=== PATIENT | female | born 1980 | race Caucasian/White ===

== ENCOUNTER 2020-02-06 07:53 | Day surgery (SDC) | payer OTHER ==
[~2020-02-06] VITALS: Ht 153.7 cm; Wt 81.3 kg
[2020-02-06 08:37] VITALS: BP 139/84
[2020-02-06] MEDS ORDERED: NORE-93 PO (08:37)
[2020-02-06] MEDS ORDERED: LACTATED RINGERS 1,000 ML IV STA (08:42)
[2020-02-06] MEDS ORDERED: CHLORHEXIDINE 15 ML UDC MM STA (08:42)
[2020-02-06] MEDS ORDERED: KETOROLAC 30 MG/1 ML ONE (08:50)
[2020-02-06] MEDS ORDERED: MIDAZOLAM 1 MG/ML, 2ML ONE (08:50)
[2020-02-06] MEDS ORDERED: FENTANYL PF 250 MCG/5ML ONE ×2 (08:50→11:04)
[2020-02-06] MEDS ORDERED: NEOSTIGMINE 1 MG/ML, 10ML ONE (08:51)
[2020-02-06] MEDS ORDERED: ROCURONIUM 10MG/ML,5ML ONE (08:51)
[2020-02-06] MEDS ORDERED: DEXAMETHASONE 4 MG/ML, 1ML ONE (08:51)
[2020-02-06] MEDS ORDERED: GLYCOPYRROLATE 0.2MG/1ML, 5ML ONE (08:51)
[2020-02-06] MEDS ORDERED: PROPOFOL 10 MG/ML, 20ML ONE (08:51)
[2020-02-06] MEDS ORDERED: ONDANSETRON 2MG/ML, 2ML ONE (08:51)
[2020-02-06] MEDS ORDERED: CHLORHEXIDINE 15 ML UDC ONE (08:52)
[2020-02-06 09:01] LABS: HCG UR SG 1.021 (1.003-1.030)
[2020-02-06] MEDS ORDERED: LACTATED RINGERS 1,000 ML IV ONE (09:30)
[2020-02-06] MEDS ORDERED: CEFOTETAN 2 GM ONE (09:56)
[2020-02-06] MEDS ORDERED: HALOPERIDOL 5 MG/ML IV PRN (10:00)
[2020-02-06] MEDS ORDERED: MEPERIDINE/PF 25MG/0.5ML IVPush PRN (10:00)
[2020-02-06] MEDS ORDERED: morphine SULFATE 10 MG/ML, 1ML IVPush PRN (10:00)
[2020-02-06] MEDS ORDERED: LABETALOL 5MG/ML, 20ML IV PRN (10:00)
[2020-02-06] MEDS ORDERED: ACETAMINOPHEN 325 MG TABLET PO PRN (10:00)
[2020-02-06] MEDS ORDERED: PROMETHAZINE 25 MG/ML, 1ML IVPush PRN (10:00)
[2020-02-06] MEDS ORDERED: hydrALAzine 20 MG/ML, 1ML IV PRN (10:00)
[2020-02-06] MEDS ORDERED: OXYcodone 5 MG/5 ML ORAL.SOL UDC PO PRN (10:00)
[2020-02-06] MEDS ORDERED: HYDROmorphone 1 MG/ML, 1ML INJ IVPush PRN (10:00)
[2020-02-06] MEDS ORDERED: FENTANYL PF 100 MCG/2ML IV PRN (10:00)
[2020-02-06] MEDS ORDERED: BUPIVACAINE/PF 0.25% INFIL ONE (10:36)
== END 2020-02-06 16:20 | disposition home or self-care (01) ==
LOC: OUT 07:53
PROVIDERS: ATTEND Specialist
DX: N92.0 Excessive and frequent menstruation with regular cycle (principal); Z20.828 Contact with and (suspected) exposure to other viral communicable diseases; N94.6 Dysmenorrhea, unspecified; N87.9 Dysplasia of cervix uteri, unspecified; N80.0 Endometriosis of uterus; R10.2 Pelvic and perineal pain; D50.9 Iron deficiency anemia, unspecified; Z79.899 Other long term (current) drug therapy; Z98.51 Tubal ligation status
CPT/HCPCS: 58571; 81025; 87635; 88307; J1100; J1885; J2250; J2405; J2704; J2710; J3010; J7120; S2900

== ENCOUNTER → 2020-10-19 | Outpatient (CLI) | payer OTHER ==
[~2020-10-19] MED LIST: NORE-93 PO
== END | disposition home or self-care (01) ==
LOC: CFH 09:24
PROVIDERS: ATTEND Family Medicine
DX: M25.50 Pain in unspecified joint (principal)